=== PATIENT | female | born 1985 | race Caucasian/White ===

== ENCOUNTER 2020-08-20 10:19 | Outpatient (NON) | payer BC, SELFPAY ==
[2020-08-21 06:46] LABS: SARS-CoV-2 RNA PCR Negative
== END 2020-08-20 10:20 ==
PROVIDERS: PCP Family Medicine; Visit Provider Family Medicine
DX: J02.9 Acute pharyngitis, unspecified (principal); R09.81 Nasal congestion; R51.9 Headache, unspecified; Z20.828 Contact with and (suspected) exposure to other viral communicable diseases
CPT/HCPCS: 87635; C9803; U0003

== ENCOUNTER 2021-11-08 04:58 | Inpatient (IN) | payer BC, SELFPAY ==
[2021-11-08] VITALS (63 sets, daily range): BP systolic 82–139; BP diastolic 36–98; PULSE 59–174; RESP 16; TEMP 36.6–37.2; O2SAT 98–100; BMI 23.0
--- NOTE | 2021-11-08 05:31 | LDADM ---
This patient, Lulú Gregory, was admitted to Labor/Delivery/Recovery 104 on 11/08/21 at 04:58. Plans for labor, pain management and were discussed with patient. Patient/family oriented to hospital policies and general routines including ID bracelet, bed and alarms, visiting hours, pain management, procedures, bathroom and other care routines, personal items, smoking policy, room service/diet and guest tray routines, security routines, and visiting hours. Patient/Family are encouraged to report perceived risks to care and to ask questions if they do not understand what they are told or what they should do. See OBIX for further documentation.
[2021-11-08] MEDS: LACTATED RINGERS 1,000 ML 125 ML IV CONT ×2 (05:38→10:03)
[2021-11-08] MEDS: OXYTOCIN 30 UNITS/NS 500 ML 30 UNITS/500 ML BAG IV CONT (05:39)
[2021-11-08 05:58] LABS: Basophils Percent Auto 0.6 % (0.2-1.2); Eosinophils Absolute Auto 0.1 K/mm3 (0-0.3); Eosinophils Percent Auto 1.1 % (0-4.4); Hematocrit 38.4 % (37.0-47.0); Hemoglobin 13.1 g/dL (12.0-15.0); Immature Granulocyte Absolute 0.04 K/mm3 (0.00-0.031); Immature Granulocyte Percent A 0.6 % (0-0.5); Lymphocytes Absolute Auto 1.65 K/mm3 (0.9-3.2); Lymphocytes Percent Auto 26.6 % (18.3-44.2); Mean Corpuscular HGB Conc 34.1 g/dl (32-36); Mean Corpuscular Hemoglobin 32.3 pg (26-34); Mean Corpuscular Volume 94.6 fl (80-100); Mean Platelet Volume 9.8 fl (7.4-10.4); Monocytes Absolute Auto 0.3 K/mm3 (0.1-0.6); Monocytes Percent Auto 4.5 % (2.6-8.5); Neutrophils Absolute Auto 4.1 K/mm3 (1.3-6.7); Neutrophils Percent Auto 66.6 % (45.5-73.1); Platelet Count Result 178 k/mm3 (150-375); Red Blood Count 4.06 M/mm3 (4.2-5.4); Red Cell Distribution Width 13.1 % (11.5-14.5); White Blood Count 6.2 K/mm3 (4.5-10.0)
--- NOTE | 2021-11-08 06:15 | WPDANESEPP ---
Anes - Eval Pre Procedure Procedure: labor epidural Date/Time: 11/08/21 06:15 Surgeon: pattie Pre Op Diagnosis: Induciton of Labor Patient Data Age: 36 Gender: F Height: 1.78 m Weight: 72.7 kg Last Vital Signs Pulse 94 11/08/21 06:01 BP 119/70 11/08/21 06:01 Allergies Allergy/AdvReac Type Severity Reaction Status Date / Time BEETS Allergy Mild ITCHING Uncoded 07/16/20 14:22 Bertrand Allergy Mild ITCHING Uncoded 07/16/20 14:22 Home Medications Medication Instructions Recorded Confirmed Type PNV cmb#95-ferrous fumarate-FA 1 tablet PO DAILY 10/17/21 10/17/21 History [] acetaminophen-codeine 1 tablet PO Q6H PRN 10/17/21 10/17/21 History [Tylenol-Codeine #3] rizatriptan 10 mg PO ONCE PRN 10/17/21 10/17/21 History Laboratory Tests 11/08/21 11/08/21 05:44 05:44 WBC 6.2 K/mm3 K/mm3 (4.5-10.0) RBC 4.06 M/mm3 L M/mm3 (4.2-5.4) Hgb 13.1 g/dL g/dL (12.0-15.0) Hct 38.4 % % (37.0-47.0) MCV 94.6 fl fl (80-100) MCH 32.3 pg pg (26-34) MCHC 34.1 g/dl g/dl (32-36) RDW 13.1 % % (11.5-14.5) Plt Count 178 k/mm3 k/mm3 (150-375) MPV 9.8 fl fl (7.4-10.4) Immature Gran % (Auto) 0.6 % H % (0-0.5) Neut % (Auto) 66.6 % % (45.5-73.1) Lymph % (Auto) 26.6 % % (18.3-44.2) [place] % (Auto) 4.5 % % (2.6-8.5) Eos % (Auto) 1.1 % % (0-4.4) Baso % (Auto) 0.6 % % (0.2-1.2) Lymph # (Auto) 1.65 K/mm3 K/mm3 (0.9-3.2) [place] # (Auto) 0.3 K/mm3 K/mm3 (0.1-0.6) Eos # (Auto) 0.1 K/mm3 K/mm3 (0-0.3) Baso # (Auto) 0.0 K/mm3 K/mm3 (0.0-0.1) Abs Immat Gran (auto) 0.04 K/mm3 H K/mm3 (0.00-0.031) Absolute Neuts (auto) 4.1 K/mm3 K/mm3 (1.3-6.7) Absolute Nucleated RBC 0.0 K/mm3 K/mm3 (0.0-0.012) Nucleated RBC % 0.0 % % (0.0-0.2) RPR Pending Patient hx anesthesia problems: none Family hx anesthesia problems: none Results Review: All pre-operative results and documents have been reviewed as part of the pre-operative evaluation. [facility] Family History Family History Grandparent Family history of cardiovascular disease Family history of malignant neoplasm Family history of atrial fibrillation Social History Social History Smoking status: Never smoker Second hand tobacco smoke exposure: No Alcohol intake: current Substance use: never Spiritual care concerns: No Exam Day of Procedure 11/08/21 06:15
--- NOTE | 2021-11-08 07:07 | WPDOBADMIT ---
Obstetrics - Admit Note Admission Note: record reviewed. Additions to the history and/or subsequent changes in the physical findings follow. 36 y/o at 39 4/7 weeks here for induction of labor. GBS neg. AVSS NST reactive TOCO: irregular contractions ABD soft, nontender, gravid, vertex EXT nontender Cervix 450/-2. AROM with clear fluid. Vertex. A: IUP at term with favorable cervix. P: Desires induction of labor. Oxytocin. Anticipate .
--- NOTE | 2021-11-08 12:26 | PM.OBPNLAB ---
Pain Control Date/time seen: 11/08/21 12:26 Comments: Comfortable with epidural. Pelvic Exam Dilation (cm): 5 Effacement (%): 80 station: -1 Contractions Contraction frequency: 3 Status status: Category l Assessment and Plan Comments: IUPC placed. Continue labor.
--- NOTE | 2021-11-08 14:55 | PM.OBPRVD ---
OB - Delivery Note Procedure Delivery date: 11/08/21 Procedure: Induction of labor with Induction method: Per Pitocin Protocol Delivery augmentation: Rupture of Membranes Delivery monitor: External FHT, External Uterine, Internal FHT and Internal Uterine Route of delivery: Laceration Description: Perineal - 2nd Degree Delivery repair: vicryl (3-0) Specimen: Yes (cord blood) Quantitative Blood Loss (ml): 180 Anesthesia type: Epidural Disposition: PACU Complications: None Narrative: 36 y/o at 39 4/7 weeks gestation who presented to the hospital for induction of labor. Oxytocin was administered intravenously. Amniotomy was performed with return of clear fluid. She received an epidural for pain control. Her labor progressed and her cervix dilated completely. She pushed with good effort and delivered the infant's head to the perineum, followed by the body. The nose and mouth were bulb suctioned. After a delay, the cord was clamped and cut. The was handed off the field. Cord blood was collected. The placenta delivered spontaneously and was grossly normal in appearance. The usual 3 vessel cord was noted. A second degree midline perineal laceration was sustained. This was reapproximated using 3 0 Vicryl in the usual layered fashion. Excellent hemostasis resulted as did excellent reapproximation of the normal anatomy. Needle and instrument counts were correct. The patient was taken to recovery room in stable condition. The went to the nursery in stable condition. I was present and scrubbed for the entire delivery. Baby Date of : 11/08/21 Time of : 14:35 Weeks of gestation at delivery: 39 Infant gender: Male Weight (pounds): 8 Weight (ounces): 8 presentation: vertex position: Right Occiput Anterior Placenta delivery description: Spontaneous and Normal Configuration Cord Vessel Description: 3 Vessels and Delayed Cord Clamping score one minute: 9 score five minutes: 9
--- NOTE | 2021-11-08 14:57 | PM.OBDSVD ---
DS: Admitting Diagnosis Discharge Date 11/09/21 Admitting Diagnosis IUP at 39 4/7 weeks DS: Discharge Diagnosis Discharge Diagnosis (1) (normal spontaneous vaginal delivery): Code(s): O80 - Encounter for full-term uncomplicated delivery Status: Acute OB - DS: Summary OB Procedures : None OB Procedures Intrapartum: Spontaneous Vag Delivery OB Procedures: : None DS: Data Data Completed and Pending Labs on day of discharge: Labs from last 24 hours 11/08/21 11/08/21 11/08/21 05:44 05:44 05:44 WBC 6.2 RBC 4.06 L Hgb 13.1 Hct 38.4 MCV 94.6 MCH 32.3 MCHC 34.1 RDW 13.1 Plt Count 178 MPV 9.8 Immature Gran % (Auto) 0.6 H Neut % (Auto) 66.6 Lymph % (Auto) 26.6 Jack % (Auto) 4.5 Eos % (Auto) 1.1 Baso % (Auto) 0.6 Lymph # (Auto) 1.65 Jack # (Auto) 0.3 Eos # (Auto) 0.1 Baso # (Auto) 0.0 Abs Immat Gran (auto) 0.04 H Absolute Neuts (auto) 4.1 Absolute Nucleated RBC 0.0 Nucleated RBC % 0.0 RPR Pending Blood Type O Positive Antibody Screen Negative Discharge Plan Discharge Attending physician on discharge: Ortiz Gar Discharging Clinician: Ortiz Gar Patient Disposition: Home, Self-Care Activity: pelvic rest Diet: regular Discharge Instructions: Education: Mom and Baby Guide Given to: Mother Follow-Up: Call your delivering provider's office for an appointment to be seen in: 6 Weeks Mom and baby should come to the [facility] for the follow-up appointment. Appointment Date/Time: November 10, 2021 at 10:00 am What to expect at your follow-up visit: Physical Assessment Call [phone] if you are unable to keep your appointment time. BREAST CARE: * Wear a snug supportive bra. * For engorgement discomfort: Breast Feeding: * Apply warm moist washcloths * Express milk as needed to relieve engorgement * Wear loose clothing * For sore nipples: * Identify correct latch-on * Apply warm moist washcloths before and after nursing * Air dry nipples after nursing * May apply Lansinoh cream to nipples PERINEAL CARE: * Until bleeding stops, use your aurelia bottle after urinating * Change your pad frequently throughout the day * You may take sitz baths several times a day (fill your bathtub with warm water and soak for 20 minutes.) Do NOT bathe in the water * No tub baths until seen by your physician - You may shower ACTIVITY: * Rest as much as possible. * Do not exercise or lift anything heavier than your baby (such as laundry or other children.) * Avoid stairs or driving as much as possible. * Do not put anything into the vagina. No douching, tampons, or sexual activity until seen by physician. NOTIFY PHYSICIAN IF YOU HAVE ANY QUESTIONS OR IF ANY OF THE FOLLOWING SYMPTOMS OCCUR: * If your incision becomes red, swollen, or more painful than what you have experienced in the hospital. * If your vaginal bleeding becomes foul smelling. * If your vaginal bleeding becomes more heavy than a period or if your bleeding changes from pink to bright crayon red. However, you may pass an occasional walnut-sized clot once or twice for the first week . * If you experience a sharp, shooting pain in you calves. * If you discover a hard, reddened area on your breast or if you experience flu-like symptoms. DIET: * Eat regular, well-balanced meals. * Drink plenty of fluids daily. If , drink to thirst. Call or return if temperature above 100.4? F, increased abdominal pain, increased vaginal bleeding or any new problems. Patient Instructions: and Nipple Soreness (DC), and Breast Engorgement (DC), and Your Diet (DC), Vaginal Delivery (DC) Stand Alone Forms: General Discharge Information Follow-up/Referrals: Ortiz Gar MD [Physician] - 6 Weeks
[2021-11-08] MEDS: OXYTOCIN 30 UNITS/NS 500 ML 30 UNITS/500 ML BAG 125 UNITS IV CONT (15:07)
[2021-11-08] MEDS: BENZOCAINE 20% AER SPR (*SP) 56 GM CAN 1 SPRAY TOPICAL (16:55)
[2021-11-08] MEDS: WITCH HAZEL 40 PADS 1 PAD TOPICAL (16:55)
[2021-11-09] MEDS: IBUPROFEN 600 MG TABLET PO ×2 (02:36→10:45)
[2021-11-09 02:50] VITALS: BP 125/70; PULSE 77; RESP 16; TEMP 36.7
[2021-11-09 05:16] LABS: Hematocrit 37.6 % (37.0-47.0); Hemoglobin 12.5 g/dL (12.0-15.0)
[2021-11-09 07:30] VITALS: BP 114/70; PULSE 65; RESP 16; TEMP 37.1; O2SAT 98
--- NOTE | 2021-11-09 07:34 | WPDANLDPN2 ---
Anes-Prog Note L&D Date/Time: 11/09/21 07:34 Comfortable throughout: labor and delivery Neuraxial method: epidural Epidural/Spinal procedure site: clean & non-tender Neuro status: Neuro function grossly intact. Cardiovascular status: normal Respiratory status: normal Airway patency: baseline Mental status: baseline Post-Op hydration status: normal Vital Signs: Last Vital Signs Temp 36.7 C 11/09/21 02:50 Pulse 77 11/09/21 02:50 Resp 16 11/09/21 02:50 BP 125/70 11/09/21 02:50 Pulse Ox 99 11/08/21 18:00 Pain score (VAS): 10/10 I/O: Intake & Output 11/08/21 11/08/21 11/09/21 15:59 23:59 07:59 Intake Total 2300 Balance 2300 Post-procedural complaints: none Patient feedback: Patient satisfied with anesthetic care.
--- NOTE | 2021-11-09 09:09 | PC.NURSE ---
0747 - Introductions were made and mother led the discussion of her desires to feeding her baby. Reviewed handwashing to prevent infection before and after taking care of her baby. Mother verbalizes she is able to independently latch infant. Mother explains she has some nipple tenderness from some shallow latching. Discussed how to watch for early feeding cues, place infant skin to skin, then feeding baby when infant is ready or every 2-3 hours. Reviewed positioning/alignment with the use of demonstration and the mom and baby guide. Encouraged mother with infant skin to skin, to the right breast in football position using nipple to nose with asymmetrical 140-degree latch. She denies any nipple discomfort after the initial latch, then it improves. After 7 min infant opens his mouth and repositions on the nipple and mother demonstrates detaching infant. Mother is informed that there is to be no pain with . Reviewed visuals to watch for to confirm effective . Reviewed effective latching with resources tool and visual handout. Nipple tenderness is relieved with improving positioning and effective latching. Use of warm, wet compress to nipples and air dry for improved comfort. was able to maintain effective latch. Mother has verbalized understanding and demonstrated watching for feeding cues for responsive feeding, how to stimulate infant to initiate to feed when she sees feeding cues, 8-12 times in 24 hours approximately every 2-3 hours from the start of the last feeding or she has discomfort with nursing. Reported to primary RN.
[2021-11-09 10:00] VITALS: PULSE 65; RESP 16; O2SAT 98
[2021-11-09] MEDS: DOCUSATE SODIUM 100 MG CAPSULE PO (10:45)
[2021-11-09] MEDS: MULTIVIT/MIN/PREN/FOL AC/IRON TABLET 1 TAB PO (10:46)
[2021-11-09 11:41] VITALS: BP 123/84; PULSE 64; RESP 16; TEMP 36.9; O2SAT 98
[2021-11-09 12:40] LABS: Rapid Plasma Reagin Non-Reactive (NonReactive)
--- NOTE | 2021-11-09 18:00 | PM.OBPNVD ---
OB - PN: Subj Subjective Date/time seen: 11/09/21 18:00 Narrative: Pain OK. Would like circumcision for son. Would like to go home. OB - PN: Obj Data Labs CBC & Chem 7: 11/09/21 03:03 Labs: Laboratory Results - last 24 hr 11/08/21 11/09/21 05:44 03:03 Hgb 12.5 Hct 37.6 RPR Non-reactive OB - PN A/P Plan Comments: A: PPD#1, doing well. P: Reviewed circ. Home to f/u 6 weeks. Exam Psych: Other: AVSS ABD soft, nontender, fundus firm EXT nontender
[2021-11-10 10:30] VITALS: BP 119/65; PULSE 81; RESP 20; TEMP 37.1; O2SAT 100
== END 2021-11-09 18:52 | disposition home or self-care (01) | DRG 807 ==
LOC: ANHLDR 14:58 → ANHOB2 17:27
PROVIDERS: Admitting Provider Obstetrics & Gynecology; PCP Family Medicine; Visit Provider Obstetrics & Gynecology
DX: O76 Abnormality in fetal heart rate and rhythm complicating labor and delivery (principal); Z37.0 Single live birth; O70.1 Second degree perineal laceration during delivery; Z3A.39 39 weeks gestation of pregnancy
CPT/HCPCS: 36415; 85014; 85018; 85025; 86592; 86850; 86900; 86901; A9270; J2590; J2795; J7120

== ENCOUNTER 2023-02-05 10:03 | Outpatient (NON) | payer BC, SELFPAY | END 2023-02-05 10:04 | disposition home or self-care (01) | LOC: ANHLAB 02-07 10:05 | PROVIDERS: PCP Family Medicine; Visit Provider Nurse Practitioner | DX: R22.9 Localized swelling, mass and lump, unspecified (principal) | CPT/HCPCS: 88304 ==

== ENCOUNTER 2025-02-04 12:03 | Outpatient (CLI) | payer BC, OTHER, SELFPAY ==
--- NOTE | ~2025-02-04 | MMUS_ITS ---
EXAMINATION: MM diagnostic leelee BI w kaley, US breast LT limited HISTORY: Palpable left breast lump TECHNIQUE: Additional 3-D tomosynthesis images of the breasts were performed and synthetic 2-D images were generated. CAD analysis was submitted and interpreted. High resolution Limited left breast ultr asound was performed. COMPARISON: No prior studies for comparison. BREAST PARENCHYMAL COMPOSITION: Not dense: There are scattered areas of fibroglandular density. FINDINGS: MAMMOGRAPHIC FINDINGS: There are no suspicious masses, calcifications or architectural distortion in either breast to sugges t malignancy. ULTRASOUND: Limited left breast ultrasound: Normal heterogeneous echotexture without focal solid or cystic mass. IMPRESSION: 1. No evidence for malignancy in either breast. 2. Routine yearly screening mammogram and regular clinical breast examination are recommended. BI-RADS Category 1: Negative Reviewed, dictated and finalized at location A. IMPRESSION: 1. No evidence for malignancy in either breast. 2. Routine yearly screening mammogram and regular clinical breast examination a re recommended. BI-RADS Category 1: Negative
--- OUTSIDE RECORDS SUMMARY | 2025-02-04 12:23 | XMS_ITS | Referral Summary ---
Author Organization [facility] Physician Office Building [address] [place] [phone] Care Team Providers Care Electoral Officer Name Role Phone Sara Calixto NP Primary Care Provider [phone] Iza Shell NP Unavailable [phone] Encounters Date Type Department Care Team Description 12/09/2024 Results Follow-Up [facility] Primary Care at [address] [phone] Sara Calixto NP 12/09/2024 9:08 AM CDT - 12/09/2024 11:59 PM CDT Hospital Encounter [address] [address] Annual physical exam Discharge Disposition: Discharge to home or self care 12/09/2024 9:00 AM CDT Lab [facility] Outpatient Lab at [address] [phone] Annual physical exam (Primary Dx) 12/09/2024 8:30 AM CDT Office Visit [facility] Primary Care at [address] [phone] Sara Calixto NP Annual physical exam (Primary Dx); Migraine without aura and without status migrainosus, not intractable; Neural foraminal stenosis of cervical spine from Last 3 Months Allergies No known active allergies Medications ibuprofen (ADVIL,MOTRIN) 600 mg tablet Take 1 tablet (600 mg total) by mouth daily as needed for pain Active cetirizine (ZyrTEC) 10 mg tablet Take 1 tablet (10 mg total) by mouth daily Active biotin 1 mg capsule Take by mouth Active omega-3 fatty acids-fish oil 300-1,000 mg capsule Take 2 capsules (2 g total) by mouth daily Active multivitamin tabletIndication s:Vitamin Deficiency Prevention Take 1 tablet by mouth Active methocarbamoL (ROBAXIN) 750 mg tablet Take 1 tablet (750 mg total) by mouth 3 (three) times a day as needed for muscle spasms 5 Active ascorbic acid (vitamin C) 1,000 mg tablet Take 1 tablet (1,000 mg total) by mouth daily Active acidophilus-pect in, citrus 100 million cell-10 mg capsule Take by mouth Activ e rizatriptan (MAXALT) 10 mg tabletIndication s:Migraine without aura and without status migrainosus, not intractable Take 1 tablet (10 mg total) by mouth once as needed for migraine . May repeat in 2 hours if symptoms persist. Max 2 tabs in 24 hours 9 tablet 2 5 Active Active Problems Problem Noted Date Diagnosed Date Migraine without aura and wi thout status migrainosus, not intractable 12/09/2024 Overview (12/09/2024): doing ok. continue PRN maxalt Assessment & Plan (12/09/2024 10:10 AM CDT): Rare - continue maxalt prn, which helps with migraines when she has them Annual physical exam 12/09/2024 Assessment & Plan (12/09/2024 10:11 AM CDT): -Recommended: Healthy diet. Avoiding junk food/fast food. -30 minutes of exercise most days of the week. Increase to 45 minutes for weight loss. Health Maintenance reviewed - labs ordered today. -Influenza vaccine every year Recommend: -There are no preventive care reminders to display for this patient. -F/u in 1 year for Annual PE or sooner if needed Neural foraminal stenosis of cervical spine 08/31 Assessment & Plan (12/09/2024 10:09 AM CDT): Seeing neurosurgery, has gone to PT. Seeing pain management today - [facility], Dr. Abbasi. Takes robaxin prn, ibuprofen. Looking into breast reduction. Assessment & Plan (09/17/2024 12:28 PM IT SERVICE TECHNICIAN): - chronic RUE radiculopathy, undergoing PT since Sept with partial improvement - may take OTC NSAIDs/acetaminophen prn, heat/ice, biofreeze or icy/hot - MRI and referral to neurosurgery Immunizations Immunization Administration Dates Next Due COVID-19 mRNA ([email or web address]) 0.3 m L (30 mcg) vaccine (12 years and up) 07/10/2023 DTaP 05/02/1990, 6,04/21/1985,02/20,1984 Hep B, Adolescent or Pediatric 04/07/2003,1998,03/22/1999 HiB 01/01/1988 IPV 05/02/1990, 6,04/21/1985,02/20,1984 Influenza, Quadrivalent, Baylee l Culture-based MDCK, Preservative Free, Antibiotic Free, Intramuscular 07/10/2023 Influenza, Quadrivalent, Rec ombinant, Egg Free, Preservative Free, Intramuscular 07/16/2020 Influenza, Quadrivalent, Spl it, Preservative Free, Intramuscular 06/28/2022,07/04/2021,07/12/2018 Influenza, Split 10/12/2006 Influenza, Trivalent, Preser vative Free, Intramuscular 07/08/2014 Influenza, Unspecified 07/15/2024 MMR 05/10/1993,02/27/1986 [employer] Sars-Cov-2 Bivalent V accination (12+ YRS) 06/28/2022 Td, Unspecified 03/02/1999 Tdap 09/12/2021,08/23/2018,03/25/2014 Social History Tobacco Use Types Packs/Day Years Used Date Smoking Tobacco: Never Smokeless Tobacco: Never Tobacco Cessation:Counseling Given: Not Answered PHQ-2 Answer Date Recorded PHQ-2 Total Score (If total score is 3 or more points, staff should administer the PHQ-9) 0 12/09/2024 Comments No Sex and Gender Information Value Date Recorded Sex Assigned at Not on file Legal Sex Female 2:14 PM CDT Gender Identity Not on file Sexual Orientation Not on file 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 Not on file Not on file Last Filed Vital Signs Vital Sign Reading Time Taken Comments Blood Pressure 114/78 12/09/2024 8:36 AM CDT Pulse 55 12/09/2024 8:36 AM CDT Temperature 36.4 C (97.5 F) 12/09/2024 8:36 AM CDT Respiratory Rate 18 12/09/2024 8:36 AM CDT Oxygen Saturation 97% 12/09/2024 8:36 AM CDT Inhaled Oxygen Concentration - - Weight 106.8 kg (235 lb 6.4 oz) 12/09/2024 8:36 AM CDT Height 177.8 cm (5' 10 ) 12/09/2024 8:36 AM CDT Body Mass Index 33.78 12/09/2024 8:36 AM CDT Plan of Treatment Not on file Procedures Procedure Name Priority Date/Time Associated Diagnosis Comments EGFR Routine 12/09/2024 9:08 AM CDT Annual physical exam DIFFERENTIAL AUTO Routine 12/09/2024 9:0 8 AM CDT Annual physical exam THYROID FUNCTION CASCADE Routine 12/09/2024 9:08 AM CDT Annual physical exam LIPID PANEL Routine 12/09/2024 9:08 AM CDT Annual physical exam COMPREHENSIVE METABOLIC PANEL Routine 12/09/2024 9:08 AM CDT Annual physical exam CBC WITH AUTO DIFFERENTIAL Routine 12/09/2024 9:08 AM CDT Annual physical exam HEPATITIS C ANTIBODY Routine 06/05/2023 9:06 AM CDT Routine physical examination Encounter for hepatitis C screening test for low risk patient from Last 3 Months or Most Recently Relevant to Health Maintenance Results * eGFR (12/09/2024 9:08 AM CDT) eGFR >90 >=60 mL/min/1. 73 m2 Comment: Interpretive Data Reference Interval Normal >/= 90 mL/min/1.73m2 Mildly decreased* 60 - 89 mL/min/1.73m2 Mildly to moderately decreased 45 - 59 mL/min/1.73m2 Moderately to severely decreased 30 - 44 mL/min/1.73m2 Severely decreased 15 - 29 mL/min/1.73m2 Kidney Failure < 15 mL/min/1.73m2 *Relative to young adult level Estimated glomerular filtration rate is determined by the 2020 CKD-EPI equation recommended by the National Kidney Foundation (A Unifying Approach to GFR Estimation: Recommendations of the NKF-ASK Task Force on Reassessing the Inclusion of Race in Diagnosing Kidney Disease, JASN 2020). The CKD-EPI equation should not be used for patients with unstable renal function and has not been validated in children and those over 70. Current interpretive data was last reviewed 2021. Blood 12/09/2024 9:08 AM CDT 12/09/2024 6:02 PM CDT Sara Calixto NP LAB BLOOD ORDERABLES Final Re sult [facility] [id number] [place] [address] * Differential, auto (12/09/2024 9:08 AM CDT) Neutrophil abs 2.1 1.5 - 6.5 K/cumm Imm gran abs 0.0 0.0 - 0.1 K/cumm [facility] Lymphocyte abs 1.6 0.8 - 3.3 K/cumm [facility] Monocyte abs 0.3 0.2 - 0.8 K/cumm [facility] Eosinophil abs 0.1 0.0 - 0.5 K/cumm [facility] Basophil abs 0.0 0.0 - 0.1 K/cumm [facility] Neutrophil pct 51.0 % [facility] Comment: Interpretive Data Percent cell count reference ranges are not reported, since discordance with absolute values may lead to misinterpretation of CBC data. Current Interpretive Data was last revised on 2018. Imm gran pct 0.2 % [facility] Comment: Interpretive Data Percent cell count reference ranges are not reported, since discordance with absolute values may lead to misinterpretation of CBC data. Current Interpretive Data was last revised on 2018. Lymphocyte pct 38.7 % [facility] Comment: Interpretive Data Percent cell count reference ranges are not reported, since discordance with absolute values may lead to misinterpretation of CBC data. Current Interpretive Data was last revised on 2018. Monocyte pct 6.6 % [facility] Comment: Interpretive Data Percent cell count reference ranges are not reported, since discordance with absolute values may lead to misinterpretation of CBC data. Current Interpretive Data was last revised on 2018. Eosinophil pct 2.5 % [facility] Comment: Interpretive Data Percent cell count reference ranges are not reported, since discordance with absolute values may lead to misinterpretation of CBC data. Current Interpretive Data was last revised on 2018. Basophil pct 1.0 % [facility] Comment: Interpretive Data Percent cell count reference ranges are not reported, since discordance with absolute values may lead to misinterpretation of CBC data. Current Interpretive Data was last revised on 2018. Blood 12/09/2024 9:08 AM CDT 12/09/2024 5:08 PM CDT Sara Calixto NP LAB BLOOD ORDERABLES Final Re sult Performing Organization Address [facility] Co de Phone Number JAZLYN REX [address] [facility] [place] [address] * Thyroid Function [place] (12/09/2024 9:08 AM CDT) TSH 0.99 0.30 - 4.20 mcIUnit/mL Blood 12/09/2024 9:08 AM CDT 12/09/2024 5:08 PM CDT Sara Calixto NP LAB BLOOD ORDERABLES Final Re sult Performing Organization Address City/[facility]/ZIP Co de Phone Number JAZLYN GOODMAN [address] [place] [address] * (ABNORMAL) CBC with auto differential (12/09/2024 9:08 AM CDT) WBC 4.1 3.8 - 9.9 K/cumm Hgb 14.0 11.9 - 15.5 g/dL [facility] Hct 44.1 35.6 - 45.5 % [facility] Plt 218 150 - 400 K/cumm [facility] MPV 9.7 9.1 - 12.3 fL [facility] RBC 4.64 3.90 - 5.20 M/cumm [facility] CH MCV 95.0 81.3 - 96.4 fL [facility] CH MCH 30.2 27.1 - 33.3 pg [facility] MCHC 31.7(L) 32.3 - 35.7 g/dL [facility] CH RDW CV 13.0 11.1 - 14.9 % [facility] CH RDW SD 45.1 35.7 - 48.1 fL [facility] NRBC abs 0.00 0.00 - 0.01 K/cumm [facility] Blood 12/09/2024 9:08 AM CDT 12/09/2024 5:08 PM CDT Sara Calixto NP LAB BLOOD ORDERABLES Final Re sult JAZLY[facility] GOODMAN [address] [place] [address] * Lipid panel (12/09/2024 9:08 AM CDT) Cholesterol 153 30 - 199 mg/dL Comment: Interpretive Data Ages < or = 19 years Acceptable: <170 mg/dL Borderline high: 170-199 mg/dL High: >or= 200 mg/dL Ages > or = 20 years Desirable: <200 mg/dL Borderline high: 200-239 mg/dL High: >or= 240 mg/dL Literature References: 1. Expert Panel on Integrated Guidelines for Cardiovascular Health and Risk Reduction in Children and Adolescents. Pediatrics 2011;128:S213 2. NCEP Expert Panel. Circulation 2004;110:227 Current Interpretive Data was last revised on 2018. Triglycerides 69 <=149 mg/dL [facility] Comment: Interpretive Data Ages < or = 9 years Acceptable: <75 mg/dL Borderline high: 75-99 mg/dL High: >or= 100 mg/dL Ages 10 to 20 years Acceptable: <90 mg/dL Borderline high: 90-129 mg/dL High: >or= 130 mg/dL Ages > or = 20 years Desirable: <150 mg/dL Borderline high: 150-199 mg/dL High: 200-499 mg/dL Very high: >or= 499 mg/dL Literature References: 1. Expert Panel on Integrated Guidelines for Cardiovascular Health and Risk Reduction in Children and Adolescents. Pediatrics 2011;128:S213 2. NCEP Expert Panel. Circulation 2004;110:227 Current Interpretive Data was last revised on 2018. HDL 56 >=40 mg/dL [facility] Comment: Interpretive Data Ages < or = 19 years Acceptable: >45 mg/dL Borderline low: 40-45 mg/dL Low: <40 mg/dL Ages > or = 20 years Desirable: >or= 60 mg/dL Low: <40 mg/dL Literature References: 1. Expert Panel on Integrated Guidelines for Cardiovascular Health and Risk Reduction in Children and Adolescents. Pediatrics 2011;128:S213 2. NCEP Expert Panel. Circulation 2004;110:227 Current Interpretive Data was last revised on 2018. LDL, calculated 83 <=129 mg/dL [facility] Comment: Interpretive Data Ages < or = 19 years Acceptable: <110 mg/dL Borderline high: 110-129 mg/dL High: >or= 130 mg/dL Ages > or = 20 years Optimal: <100 mg/dL Near optimal: 100-129 mg/dL Borderline high: 130-159 mg/dL High: >160 mg/dL Calculated using the Mazin LDL-C estimating equation. This equation was implemented on 2024. Prior to this date LDL-C was estimated using the Friedewald equation. Literature References: 1. Expert Panel on Integrated Guidelines for Cardiovascular Health and Risk Reduction in Children and Adolescents. Pediatrics 2011;128:S213 2. NCEP Expert Panel. Circulation 2004;110:227 3. Mazin Webber al. CARLOS Cardiol. 2020 January 29;5(5):540-548. doi: 10.1001/jamacardio.2020.0013 Current Interpretive Data was last revised on 2024. Non-HDL Cholesterol 97 mg/dL [facility] Comment: Interpretive Data Ages < or = 19 years Acceptable: <120 mg/dL Borderline high: 120-144 mg/dL High: >145 mg/dL Ages > or = 20 years When triglycerides are >200 mg/dL, Non-HDL cholesterol is a secondary target of therapy with treatment goals that are 30 mg/dL greater than the LDL cholesterol target. Literature References: 1. Expert Panel on Integrated Guidelines for Cardiovascular Health and Risk Reduction in Children and Adolescents. Pediatrics 2011;128:S213 2. NCEP Expert Panel. Circulation 2004;110:227 Current Interpretive Data was last revised on 2018. Chol/HDL ratio 3 [facility] Blood 12/09/2024 9:08 AM CDT 12/09/2024 5:08 PM CDT Sara Calixto NP LAB BLOOD ORDERABLES Final Re sult [facility] [id number] [place] [address] * Comprehensive metabolic panel (12/09/2024 9:08 AM CDT) Sodium 143 135 - 145 mmol/L Potassium, pl 4.5 3.3 - 4.9 mmol/L [facility] Chloride 107 97 - 110 mmol/L [facility] CO2 25 22 - 32 mmol/L [facility] Anion gap 11 2 - 15 mmol/L [facility] BUN 12 6 - 25 mg/dL [facility] Creatinine 0.80 0.60 - 1.10 mg/dL [facility] Glucose 81 70 - 199 mg/dL [facility] Comment: Interpretive Data Fasting glucose >/= 126 mg/dl is diagnostic for diabetes. Fasting is defined as no caloric intake for at least 8 hours. Fasting glucose between 100 mg/dl to 125 mg/dl is diagnostic of prediabetes. In a patient with classic symptoms of hyperglycemia or hyperglycemic crisis, a random glucose >/= 200 mg/dl is diagnostic for diabetes. In the absence of unequivocal hyperglycemia, results should be confirmed by repeat testing. The classification and Diagnosis of Diabetes Diabetes Care 2021; 46: S19-S40. Current interpretive data was last revised 2022. Calcium 8.9 8.5 - 10.3 mg/dL [facility] Bilirubin, total 0.4 0.1 - 1.2 mg/dL [facility] Protein, pl 6.7 6.5 - 8.5 g/dL [facility] Albumin 4.1 3.5 - 5.0 g/dL [facility] Alk phos 52 40 - 130 Units/L [facility] ALT 14 7 - 45 Units/L [facility] AST 23 10 - 45 Units/L [facility] Blood 12/09/2024 9:08 AM CDT 12/09/2024 5:08 PM CDT Sara Calixto NP LAB BLOOD ORDERABLES Final Re sult Performing Organization Address [facility] de Phone Number JAZLYN [address] [place] [address] * Hepatitis C antibody Blood (06/05/2023 9:06 AM CDT) Hep C Ab Nonreactive Nonreactive Comment: Interpretive Data Nonreactive: Antibodies to HCV not detected. Does NOT exclude the possibility of recent exposure to HCV. Equivocal: Equivocal for HCV antibodies. Supplemental molecular testing will be automatically performed to determine infection status in accordance with current CDC screening recommendations. Reactive: Positive for HCV antibodies. This may represent current or past HCV infection. Supplemental molecular testing will be automatically performed to determine current infection status in accordance with current CDC screening recommendations. Interpretive data was last revised on 2019. Blood 06/05/2023 9:06 AM CDT 06/05/2023 3:56 PM CDT Melissa Dyson MD LAB MICROBIOLOGY - GEN ERAL ORDERABLES Final Result Performing Organization Address City/[facility]/ZIP Co de Phone Number JAZLYN GOODMAN [phone] [place] [place] [address] from Last 3 Months or Most Recently Relevant to Health Maintenance [place] Care Teams Electoral Officer Relationship Specialty Start Date End Date Sara Calixto NP [facility] [facility] [address] [place] [address] PCP - General Family Medicine 12/09/24 Iza Shell NP [address] [facility] [address] [place] [address] Nurse Practitioner Family Medicine 12/09/24
--- OUTSIDE RECORDS SUMMARY | 2025-02-04 12:23 | XMS_ITS | Clinical Summary ---
Author Organization [facility] Address [address] [facility] [place] [address] Care Team Providers Care Instructional Technologist Name Role Phone Unavailable Primary Care Provider Unavailabl e Source Comments [facility],non-owned Affiliates and Associated Physician Practices is amultiple site organization consisting of ambulatory clinics and hospital sitesin [place], [place], [place] and [place]. This disclosure is being madepursuant to the Care Everywhere program and may not contain all information available regarding this patient. Last updated 18.[facility] Social History Tobacco Use Types Packs/Day Years Used Date Smoking Tobacco: Never Assessed Comments Unknown Sex and Gender Information Value Date Recorded Sex Assigned at Not on file Legal Sex Female 4:09 PM CDT Gender Identity Not on file Sexual Orientation Not on file Plan of Treatment Health Maintenance Due Date Last Done Comments LIPID TESTING 1984 MAMMOGRAM 1984 HIV SCREENING 1999 HEPATITIS C SCREENING 10/02/2002 DTAP/TDAP/TD VACCINES (1 - Tdap) 2003 HEPATITIS B VACCINE (1 of 3 - 19+ 3-dose series) 2003 COVID-19 VACCINE (2023-2 5 season) 2024 DEPRESSION SCREENING 10/01/2024 INFLUENZA VACCINE (Season Ended) 2025 06/28/20 22 ZOSTER VACCINE (1 of 2) 2034 HIB VACCINE Aged Out No longer eligi ble based on patient's age to complete this topic HPV VACCINE Aged Out No longer eligi ble based on patient's age to complete this topic MENINGOCOCCAL (Group B) VACC INE SHARED DECISION-MAKING Aged Out No longer eligibl e based on patient's age to complete this topic MENINGOCOCCAL GROUPS A/C/Y/W VACCINE Aged Out No longer eligible b ased on patient's age to complete this topic PNEUMOCOCCAL VACCINE Aged Out No long er eligible based on patient's age to complete this topic Insurance [facility] Member Subscriber Plan / Payer (Ef fective for All Dates) Name:Lulú Gregory Relation to Subscriber:Self Name:LULÚ GREGORY Payer ID:[id number] (NAIC) Type:[facility] Address: [facility] [id number] [place] [id number]
--- OUTSIDE RECORDS SUMMARY | 2025-02-04 12:23 | XMS_ITS | Encounter Summary ---
Author Organization [facility] Address [address] [facility] [place] [address] Care Team Providers Care Water Systems Designer Name Role Phone Unavailable Primary Care Provider Unavailabl e Encounter Details Date Type Department Care Team (Late st Contact Info) Description 12/14/2020 Lab Requisition [facility] DermPath Lab [address] [facility] [place] [id number] Radhames Sharif MD [address] [place] [address] Social History Tobacco Use Types Packs/Day Years Used Date Smoking Tobacco: Never Assessed Comments Unknown Sex and Gender Information Value Date Recorded Sex Assigned at Not on file Legal Sex Female 4:09 PM CDT Gender Identity Not on file Sexual Orientation Not on file documented as of this encounter Plan of Treatment Not on file documented as of this encounter Procedures Procedure Name Priority Date/Time Associated Diagnosis Comments DERMATOPATHOLOGY Routine 12/10/2020 3:33 AM COMPOSITION BOARD PRESS OPERATOR documented in this encounter Results * DERMATOPATHOLOGY (12/10/2020 3:33 AM COMPOSITION BOARD PRESS OPERATOR) Case Report Dermatopathology Report Case: [id number] Authorizing Provider: Radhames Sharif MD Collected: 12/10/2020 03:33 AM Ordering Location: [facility] DermPath Lab Received: 12/14/2020 07:14 AM Pathologist: Ava Tripathi MD Specimen: Skin, right chest 5:56 PM CDT DERMATOPATHOLOGY LABORATORY Final Diagnosis Specimen A. 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 Path# [id number]. 1 5:56 PM CDT DERMATOPATHOLOGY LABORATORY Gross Description Specimen A: Received is one formalin filled container labeled with the patient's name and designated right chest. The specimen consists of a shave biopsy measuring [id number]. Jar 0. 1 5:56 PM CDT DERMATOPATHOLOGY LABORATORY Microscopic Description Specimen A. SKIN, right chest: There is focal parakeratosis and spongiosis. In the dermis there is a mainly superficial perivascular lymphohistiocytic inflammatory infiltrate with eosinophils. There is erythrocyte extravasation in the papillary dermis. Grocott's methenamine silver (GMS) stain fails to highlight fungal elements in the available sections. COMMENT: The histological differential diagnosis includes a contact dermatitis, nummular dermatitis, an eczematous drug eruption, and pityriasis rosea. Clinical correlation is recommended. This case was also reviewed by Dr. Maureen Durán who agrees with the diagnosis. 1 5:56 PM CDT DERMATOPATHOLOGY LABORATORY Disclaimer An external and internal positive and negative controls are appropriate for the histochemical, immunohistochemical and immunofluorescence stain(s) in this case (if any), except where stated explicitly. The performance characteristics of the stain(s) cited in this report were developed and its performance characteristic determined by the Dermatopathology Laboratory at [facility], directed by Dr. Jaky Richardson. These tests need not be, and therefore are not, approved by the [place] Food and Drug Administration. The tests are used for clinical purposes. Billing Codes Specimen Charges Stain Charges 99396 1 43295 1 1 5:56 PM CDT DERMATOPATHOLOGY LABORATORY Embedded Images 1 5:56 PM CDT DERMATOPATHOLOGY LABORATORY Pathology/Cytolo gy TISSUE SPECIMEN FROM SKIN / Unknown 12/10/2020 3:33 AM COMPOSITION BOARD PRESS OPERATOR 12/14/2020 7:14 AM CDT us Radhames Sharif MD LAB - PATHOLOGY/CYTOLOGY ORDER VISH Final Result DERMATOPATHOLOGY LABORATORY [facility] - Department of Dermatology [address] Floor [place], [place] [address] [place] [address] documented in this encounter Visit Diagnoses Not on filedocumented in this encounter
--- OUTSIDE RECORDS SUMMARY | 2025-02-04 12:23 | XMS_ITS | Encounter Summary ---
Author Organization [facility] Healthcare Address [address] [place] [id number] Care Team Providers Care Straightedge Machine Operator Helper Name Role Phone Sara Calixto NP Primary Care Provider [phone] Iza Shell NP Unavailable [phone] Encounter Details Date Type Department Care Team (Late st Contact Info) Description 12/09/2024 Results Follow-Up [facility] Medical Group Primary Care at [address] [phone] Sara Calixto NP [address] [place] [address] [address] [place] [address] Social History Tobacco Use Types Packs/Day Years Used Date Smoking Tobacco: Never Smokeless Tobacco: Never PHQ-2 Answer Date Recorded PHQ-2 Total Score [...] file Not on file Not on file documented as of this encounter Miscellaneous Notes * Result Encounter Note - Sara Calixto NP - 12/09/2024 6:38 PM CDT Received lab results: Blood sugar, kidney numbers, liver numbers and electrolytes are all normal Thyroid level is Lab Results Component Value Date TSH 0.99 12/09/2024 normal Blood count is normal, no sign of infection or anemia A1c (3 mo blood sugar average) Lab Results Component Value Date HGBA1C 4.8 06/05/2023 Triglycerides (fatty chol) normal <150, your results Lab Results Component Value Date TRIG 69 12/09/2024 HDL (good chol) normal >45 male and >55 female, your results Lab Results Component Value Date HDL 56 12/09/2024 LDL (bad chol) normal <100, your results: Lab Results Component Value Date LDLCALC 83 12/09/2024 ??My medical orderly and I are thankful you have trusted us with your care, and hope that you received EXCELLENT??care ! ??Please do not hesitate to call if you have any questions or concerns at [phone]. ? documented in this encounter Plan of Treatment Not on file documented as of this encounter Visit Diagnoses Not on filedocumented in this encounter Care Teams Straightedge Machine Operator Helper Relationship Specialty Start Date End Date Sara Calixto NP 2 [facility] [address] [place] [address] PCP - General Family Medicine 12/09/24 Iza Shell NP [address] [facility] [address] [place] [address] Nurse Practitioner Family Medicine 12/09/24 documented as of this encounter
--- OUTSIDE RECORDS SUMMARY | 2025-02-04 12:24 | XMS_ITS | Clinical Summary ---
Author Organization [facility] [address] [place] [id number] Care Team Providers Care Spinner Concrete Pipe Name Role Phone Sara Calixto NP Primary Care Provider [phone] Iza Shell NP Unavailable [phone] Allergies No known active allergies Medications ibuprofen [...] reduction. 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): - chronic RUE radiculopathy, undergoing PT since Jun with partial improvement - may take OTC NSAIDs/acetaminophen prn, heat/ice, biofreeze or icy/hot - MRI and referral to neurosurgery Encounters Date Type Department Care Team Description 12/09/2024 9:08 AM CDT - 12/09/2024 11:59 PM CDT Hospital Encounter [address] [id number] Annual physical exam Discharge Disposition: Discharge to home or self care 12/09/2024 9:00 AM CDT Lab [facility] Outpatient Lab at [address] [phone] Annual physical exam (Primary Dx) 12/09/2024 8:30 AM CDT Office Visit [facility] Primary Care at [address] [phone] Sara Calixto MARKET RISK ANALYST Annual physical exam (Primary Dx); Migraine without aura and without status migrainosus, not intractable; Neural foraminal stenosis of cervical spine 12/09/2024 Results Follow-Up [facility] Primary Care at [address] [phone] Sara Calixto MARKET RISK ANALYST from Last 3 Months Immunizations Immunization Administration Dates Next Due COVID-19 mRNA (Tomveyi Bidamon) 0.3 m L (30 mcg) vaccine (12 [...] Intramuscular 07/08/2014 Influenza, Unspecified 07/15/2024 MMR 05/10/1993,02/27/1986 Saatchi Art Sars-Cov-2 Bivalent V accination (12+ YRS) 06/28/2022 Td, Unspecified 03/02/1999 Tdap 09/12/2021,08/23/2018,03/25/2014 Surgical History Surgery Date Site/Laterality Comments WISDOM TOOTH EXTRACTION Bilateral CYST REMOVAL 01/29/2023 - 02/28/2023 Right x3 Medical History Medical History Date Comments Migraine GERD (gastroesophageal reflux disease) 2016 Family History Medical History Relation Name Comments Atrial fibrillation Father Atrial fibrillation Father's Sister lipoma Mother Atrial fibrillation Paternal Grandmother Relation Name Status Comments Father Father's Sister Alive Mother Paternal Grandmother Social History Tobacco Use Types Packs/Day Years [...] file Not on file Not on file Obstetrics History Last Filed Vital Signs Vital Sign Reading [...] 12/09/2024 8:36 AM CDT Plan of Treatment Health Maintenance Due Date Last Done Comments Cervical Cancer Screening 1984 Covid-19 Vaccine ( season) 2024 07/10/2023, 06/28/2022, 07/04/2021, Additional history exists Breast Cancer Screening-Mammogram 02/27/2025 Postponed from 1984 (Patient declined, but will receive in the future) Depression Screening 12/09/2025 12/09/2024, 09/17/2024, 06/05/2023, Additional history exists Regular Well Visit/Exam 18-64 12/09/2025 12/09/2024, 06/05/2023, 05/31/2022 DTaP/Tdap/Td Vaccine (9 - Td or Tdap) 09/12/2031 09/12/2021, 08/23/2018, 03/25/2014, Additional history exists Hepatitis B Screening Completed 04/07/2003 , 04/27/1999, 03/22/1999 Hepatitis C Screening Completed 06/05/2023 Influenza Vaccine Completed 07/15/2024, , 06/28/2022, Additional history exists HPV Vaccines Aged Out No longer eligi ble based on patient's age to complete this topic Pneumococcal vaccine <65 Aged Out No longer eligible based on patient's age to complete this topic Varicella Vaccines Discontinued Procedures Procedure Name Priority Date/Time Associated Diagnosis [...] 9:08 AM CDT 12/09/2024 6:02 PM CDT us Sara Calixto NP LAB BLOOD ORDERABLES Final Re sult [facility] [address] [place] [address] * Differential, auto (12/09/2024 9:08 AM CDT) Neutrophil abs 2.1 1.5 - 6.5 K/cumm Imm gran abs 0.0 0.0 - 0.1 K/cumm [facility] Lymphocyte abs 1.6 0.8 - 3.3 K/cumm [facility] Monocyte abs 0.3 0.2 - 0.8 K/cumm [facility] Eosinophil abs 0.1 0.0 - 0.5 K/cumm [facility] Basophil abs 0.0 0.0 - 0.1 K/cumm [facility] Neutrophil pct 51.0 % [facility] Comment: Interpretive Data Percent cell count reference ranges are not reported, since discordance with absolute values may lead to misinterpretation of CBC data. Current Interpretive Data was last revised on 2018. Imm gran pct 0.2 % [facility] Comment: Interpretive Data Percent cell count reference ranges are not reported, since discordance with absolute values may lead to misinterpretation of CBC data. Current Interpretive Data was last revised on 2018. Lymphocyte pct 38.7 % [facility] Comment: Interpretive Data Percent cell count reference ranges are not reported, since discordance with absolute values may lead to misinterpretation of CBC data. Current Interpretive Data was last revised on 2018. Monocyte pct 6.6 % [facility] Comment: Interpretive Data Percent cell count reference ranges are not reported, since discordance with absolute values may lead to misinterpretation of CBC data. Current Interpretive Data was last revised on 2018. Eosinophil pct 2.5 % [facility] Comment: Interpretive Data Percent cell count reference ranges are not reported, since discordance with absolute values may lead to misinterpretation of CBC data. Current Interpretive Data was last revised on 2018. Basophil pct 1.0 % [facility] Comment: Interpretive Data Percent cell count reference ranges are not reported, since discordance with absolute values may lead to misinterpretation of CBC data. Current Interpretive Data was last revised on 2018. Blood 12/09/2024 9:08 AM CDT 12/09/2024 5:08 PM CDT Sara Calixto NP LAB BLOOD ORDERABLES Final Re sult Performing Organization Address [facility] Co de Phone Number JAZLYN [address] [address] [place] [address] * Thyroid Function [place] (12/09/2024 9:08 AM CDT) TSH 0.99 0.30 - 4.20 mcIUnit/mL Blood 12/09/2024 9:08 AM CDT 12/09/2024 5:08 PM CDT Sara Calixto NP LAB BLOOD ORDERABLES Final Re sult Performing Organization Address City/[facility] Co de Phone Number [facility] [address] [facility] [address] [place] [address] * (ABNORMAL) CBC with auto differential (12/09/2024 9:08 AM CDT) WBC 4.1 3.8 - 9.9 K/cumm Hgb 14.0 11.9 - 15.5 g/dL [facility] Hct 44.1 35.6 - 45.5 % [facility] Plt 218 150 - 400 K/cumm [facility] MPV 9.7 9.1 - 12.3 fL [facility] RBC 4.64 3.90 - 5.20 M/cumm [facility] MCV 95.0 81.3 - 96.4 fL [facility] MCH 30.2 27.1 - 33.3 pg [facility] MCHC 31.7(L) 32.3 - 35.7 g/dL [facility] RDW CV 13.0 11.1 - 14.9 % [facility] RDW SD 45.1 35.7 - 48.1 fL [facility] NRBC abs 0.00 0.00 - 0.01 K/cumm [facility] Blood 12/09/2024 9:08 AM CDT 12/09/2024 5:08 PM CDT Sara Calixto NP LAB BLOOD ORDERABLES Final Re sult [facility] [address] Department of Laboratories [place] [id number] * Lipid panel (12/09/2024 9:08 AM CDT) [...] revised on 2018. Triglycerides 69 <=149 mg/dL [facility] Comment: Interpretive Data Ages < or = [...] on 2018. HDL 56 >=40 mg/dL [facility] Comment: Interpretive Data Ages < or = [...] 2018. LDL, calculated 83 <=129 mg/dL [facility] Comment: Interpretive Data Ages < or = [...] NCEP Expert Panel. Circulation 2004;110:227 3. Mazin Moreira et al. CARLOS Cardiol. 2020 January 29;5(5):540-548. doi: 10.1001/jamacardio.2020.0013 Current Interpretive Data was last revised on 2024. Non-HDL Cholesterol 97 mg/dL [facility] Comment: Interpretive Data Ages < or = [...] last revised on 2018. Chol/HDL ratio 3 [facility] Blood 12/09/2024 9:08 AM CDT 12/09/2024 5:08 PM CDT Sara Calixto NP LAB BLOOD ORDERABLES [facility] [address] [place] [address] * Comprehensive metabolic panel (12/09/2024 9:08 AM CDT) Sodium 143 135 - 145 mmol/L Potassium, pl 4.5 3.3 - 4.9 mmol/L [facility] Chloride 107 97 - 110 mmol/L [facility] CO2 25 22 - 32 mmol/L [facility] Anion gap 11 2 - 15 mmol/L [facility] BUN 12 6 - 25 mg/dL [facility] Creatinine 0.80 0.60 - 1.10 mg/dL [facility] Glucose 81 70 - 199 mg/dL [facility] Comment: Interpretive Data Fasting glucose >/= 126 [...] classification and Diagnosis of Diabetes Diabetes Care 202; 46: S19-S40. Current interpretive data was last [...] CH AST 23 10 - 45 Units/L [facility] Blood 12/09/2024 9:08 AM CDT 12/09/2024 5:08 PM CDT Sara Calixto NP LAB BLOOD ORDERABLES Final Re sult Performing Organization Address City/[facility]/ZIP Co de Phone Number [facility] [id number] [address] [place] [address] * Hepatitis C antibody Blood (06/05/2023 9:06 [...] ERAL ORDERABLES Final Result Performing Organization Address City/[facility]/ZIP Co de Phone Number J[facility]LYN [facility]MAN [address] [address] [place] [address] from Last 3 Months or Most Recently Relevant to Health Maintenance [place] Care Teams Spinner Concrete Pipe Relationship Specialty Start Date End Date Sara Calixto NP [address] [facility] [address] [place] [address] PCP - General Family Medicine 12/09/24 Iza Shell NP [address] [place] [id number] Nurse Practitioner Family Medicine 12/09/24
== END 2025-02-04 12:04 | disposition home or self-care (01) ==
LOC: ANHIMG 12:06
PROVIDERS: Visit Provider Nurse Practitioner Family
DX: N63.20 Unspecified lump in the left breast, unspecified quadrant (principal)
CPT/HCPCS: 76642; 77062; 77066; G0279